=== PATIENT | female | born 1970 | race Caucasian/White ===

== ENCOUNTER 2024-12-20 15:33 | Emergency (ER) | payer BC, SELFPAY ==
[2024-12-20 15:37] VITALS: BP 142/95
--- NOTE | 2024-12-20 18:11 | ED.GENMED ---
History of Present Illness
General
Chief Complaint: Psychiatric Problem
Source: patient
Exam Limitations: none
Time Seen by Provider: 12/20/24 15:55
Nursing documentation reviewed up to this point in time: agreed with
History of Present Illness
History of Present Illness:
Patient presents to ED for medical clearance, for potential inpatient psychiatric evaluation or treatment, secondary to worsening generalized anxiety and paranoia, despite outpatient medication adjustment. Patient however, denies any suicidal or
homicidal ideation. Patient has ongoing chronic lower back pain, for which she takes tramadol and Motrin. Otherwise, patient has no additional complaints. Denies recent illness. Denies loss of appetite. Denies inability to sleep.
Review of Systems
Review of Systems
Allergies reviewed?: Yes
All Other Systems: ROS reviewed and negative except as documented in HPI and ROS
Constitutional: Reports no symptoms
ABD/GI: Reports no symptoms
: Reports no symptoms; Denies incontinence
Musculoskeletal: Reports back pain
Skin: Reports no symptoms
Neurological: Reports no symptoms; Denies weakness
Psychiatric: Reports anxiety and other (Paranoia)
Phy Exam
Physical Exam
Physical Exam:
Physical Exam
General: no apparent distress, not acutely ill. afebrile
Head: nc/at. eomi
Neck: supple. normal range of motion.
Heart: s1/s2 regular rate and rhythm
Lungs: no acute respiratory distress. clear bilaterally
Abdomen: normal bowel sounds. not tender.
Neuro: alert and oriented x 3. no focal neurological deficits
Skin: no rash
Psychiatric: well kept. interactive and cooperative
Extremities: no edema. no calf tenderness.
Course
Orders/Labs/Results
Orders:
Orders
12/20/24 15:55
Crisis Consult Urgent
Reason for Consult: paranoia
12/20/24 18:14
Acetaminophen Urgent
Alcohol Urgent
Complete Blood Count/With Diff Urgent
Comprehensive Metabolic Panel Urgent
Salicylate Urgent
12/20/24 19:00
Nicotine [Nicoderm Transdermal] 21 mg TRANSDERM DAILY
12/20/24 19:38
Urine Drug Abuse Screen Urgent
Date Specimen was Collected: 12/20/24
Time Specimen was Collected: 18:42
12/20/24 22:00
Remove Patch [Remove Nicotine Patch] See Dose Instructions REMOVE HS
Abnormal Lab Results
12/20/24
18:14
MCH 31.3 H pg
(27.0-31.0)
RDW 18.9 H %
(11.5-14.5)
Absolute Monos (auto) 0.7 H 10^3/uL
(0.1-0.6)
Chloride 112 H mmol/L
(98-107)
Creatinine 0.5 L mg/dL
(0.6-1.0)
Acetaminophen < 10 L ug/ml
(10-30)
12/20/24 18:14
12/20/24 18:14
Vital Signs
Initial and Last Documented VS:
Initial Vital Signs
Temp Pulse Resp BP Pulse Ox
98.3 F 110 20 142/95 98
12/20/24 15:37 12/20/24 15:37 12/20/24 15:37 12/20/24 15:37 12/20/24 15:37
Last Documented Vital Signs
Temp Pulse Resp BP Pulse Ox
98.3 F 110 20 142/95 98
12/20/24 15:37 12/20/24 15:37 12/20/24 15:37 12/20/24 15:37 12/20/24 18:13
MDM/Problems Addressed
MDM/Problems Addressed:
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 Decision made to transfer patient to inpatient psychiatric facility for further evaluation and treatment.
*Pulse Oximetry
SaO2: 98
Oxygen Mode of Delivery: Room air
Patient hypoxic: no
*Critical Care Note
Total Time (30-74mins, 75-104mins- exclusive of procedures): Not Applicable
ED Attending Note
-
Portions of this chart may have been created with voice recognition software.� Occasional wrong word or��sound alike� substitutions may have occurred due to the inherent limitations of voice recognition software.
Discharge Plan
Departure
Patient Disposition: Psych Facility
Date of Disposition: 12/20/24
Time of Disposition: 18:13
Patient Status:: 201
Discharge Problem:
Anxiety, Paranoia
Referrals:
Tima Gilbert DO [Family Provider, Family Practice]
Interventions
Interventions:
*Risk Screen - Suicide Last Done: 12/20/24 15:42
*General Assessment Last Done: 12/20/24 15:37
*Neglect/Abuse Screening Last Done: 12/20/24 18:18
*ED- Fall Risk Assessment Last Done: 12/20/24 18:18
*ED COVID-19 Vaccine History Last Done: 12/20/24 18:18
*Nursing Disposition Last Done: 12/20/24 20:55
ED-Psychological Assessment Last Done: 12/20/24 18:18
Discharge Date and Time
Discharge Date/Time: 12/20/24 20:55
Print Language: MALAY
[2024-12-20 18:17] VITALS: BMI 20.5
[2024-12-20 18:30] LABS: Hematocrit 44.6 % (37.0-47.0); Hemoglobin 15.1 g/dL (12.0-16.0); Mean Corp Hgb Conc. 33.9 g/dL (33.0-37.0); Mean Corpuscular Hgb 31.3 pg (27.0-31.0); Mean Corpuscular Volume 92.3 fL (81.0-99.0); Mean Platelet Volume 9.2 fL (7.4-10.4); Platelet Count 296 10^3/uL (130-400); Red Blood Cell Count 4.83 10^6/uL (4.20-5.40); Red Cell Dist. Width 18.9 % (11.5-14.5); White Blood Cell Count 8.1 10^3/uL (4.8-10.8)
[2024-12-20 18:34] LABS: ALT (SGPT) 21 U/L (0-35); AST (SGOT) 20 U/L (14-36); Albumin 4.3 g/dl (3.5-5.0); Alkaline Phosphatase 64 U/L (38-126); Blood Urea Nitrogen 10 mg/dl (7-17); Calcium 9.3 mg/dl (8.4-10.2); Carbon Dioxide 23 mmol/L (22-30); Chloride 112 mmol/L (98-107); Estimated Creatinine Clearance 97 ml/min; Glucose 84 mg/dl (70-99); Potassium 4.2 mmol/L (3.5-5.1); Sodium 140 mmol/L (135-145); Total Bilirubin 0.3 mg/dl (0.2-1.3); Total Protein 6.8 g/dl (6.3-8.2); eGFR > 60.00
[2024-12-20] MEDS: NICODERM TRANSDERMAL 21 MG TRANSDERM (18:43)
[2024-12-20 18:45] LABS: Acetaminophen < 10 ug/ml (10-30); Alcohol None Detected; Salicylate 6.8 mg/dl (2.0-20.0)
[2024-12-20 18:50] LABS: % Basophils 0.7 % (0-2); % Eosinophils 1.4 % (0-6); % Immature Granulocytes 0.2 % (0-0.5); % Lymphocytes 33.1 % (20.5-51.1); % Monocytes 8.2 % (1.7-9.3); % Neutrophils 56.4 % (42.2-75.2); Absolute Basophils 0.1 10^3/uL (0-0.2); Absolute Eosinophils 0.1 10^3/uL (0-0.7); Absolute Lymphocytes 2.7 10^3/uL (1.2-3.4); Absolute Monocytes 0.7 10^3/uL (0.1-0.6); Absolute Neutrophils 4.6 10^3/uL (1.4-6.5); Nucleated Red Blood Cells % 0 %
[2024-12-20 18:51] LABS: Anisocytosis 1+; Normal RBC Morphology No
[2024-12-20 18:53] LABS: Macrocytosis 1+
[2024-12-20 18:54] LABS: Microcytosis 1+
[2024-12-20 19:56] LABS: Amphetamines Negative (Negative); Barbiturates Negative (Negative); Benzodiazepines Negative (Negative); Buprenorphine Negative (Negative); Cocaine Negative (Negative); Marijuana Negative (Negative); Methadone Negative (Negative); Methamphetamines Negative (Negative); Opiates Negative (Negative); Phencyclidine Negative (Negative); Tricyclic Antidepressants Negative (Negative)
== END 2024-12-20 20:55 ==
LOC: EMR 15:33
PROVIDERS: EMERGENCY PHYSICIAN Emergency Medicine; FAMILY PHYSICIAN Family Medicine
DX: F41.9 Anxiety disorder, unspecified (principal); F22 Delusional disorders; G89.29 Other chronic pain; M54.50 Low back pain, unspecified
CPT/HCPCS: 99283; 80053; 80143; 80179; 80306; 82077; 85025